=== PATIENT | female | born 1980 | race Caucasian/White ===

== ENCOUNTER 2023-12-14 14:28 | Emergency (ER) | payer OTHER, SELFPAY ==
[2023-12-14 14:46] VITALS: BP 115/70; PULSE 87; RESP 16; TEMP 36.3; O2SAT 100
--- NOTE | 2023-12-14 15:28 | ED.SKABFB ---
HPI - Skin/Abscess/Foreign Bdy General Chief complaint: Skin/Abscess/Foreign Body Stated complaint: Poison Casandra Time Seen by Provider: 12/14/23 15:32 Source: patient Mode of arrival: ambulatory Limitations: no limitations History of Present Illness HPI narrative: 43 y/o female presented for c/o itchy rash to right arm for about 4 days. States she has poison casandra after chopping a tree. States she thinks is spreading to the right back and left foot. Applying Calamine without much improvement. Also takes Zyrtec daily. Denies lip, tongue, or throat swelling, shortness of breath or wheezing. Denies changes to soap, detergent, lotion, or any other exposures. No one else in the house or any contacts with similar symptoms. Related Data Home Medications Medication Instructions Recorded Confirmed Zyrtec-D 12/14/23 cholecalciferol (vitamin D3) 10 12/14/23 mcg (400 unit) capsule (Vitamin D3) levothyroxine 88 mcg tablet mcg 12/14/23 Allergies Allergy/AdvReac Type Severity Reaction Status Date / Time No Known Allergies Allergy Verified 12/14/23 15:11 Review of Systems Review of Systems: CONSTITUTIONAL: Denies body aches, fever, chills, or sweats. EYES: Denies visual changes, redness, or discharge. ENT: Denies rhinorrhea, congestion CARDIOVASCULAR: Denies chest pain, palpitations, or edema. RESPIRATORY: Denies cough or dyspnea. GASTROINTESTINAL: Denies abdominal pain, nausea, vomiting, or diarrhea. SKIN: Reports itchy rash to right arm MUSCULOSKELETAL: Denies back pain, joint pain, or myalgia. NEUROLOGIC: Denies headache, numbness, tingling, or weakness. PMFSH Comments At time of signature, I have reviewed and agree with nursing past medical, surgical, social and family history unless otherwise noted. Please see nursing chart for further information. There is no relevant family history pertinent to the presenting complaint Exam Narrative: GENERAL: Well-appearing EYES: conjunctivae clear, and EOMI. ENT: Mucous membranes moist. Oropharynx without edema, erythema or lesions. NECK: Supple. No lymphadenopathy CHEST: Clear to auscultation. HEART: Regular rate and rhythm. SKIN: Warm, dry. Right elbow with area of vesicles on erythematous base extending from mid bicep to forearm c/w contact dermatitis. No other apparent sites noted. NEURO: Alert and oriented x3. Course Course Emergency Course: Patient is aware of diagnosis, understands and agrees to treatment plan. Anticipatory guidance given. Patient agrees to follow-up as directed and is aware of reasons to seek care at the emergency department. Portions of this record may have been created with voice recognition software Level of Care: Express Care Visit Vital Signs Vital signs: Vital Signs Temperature 97.4 F L 12/14/23 14:46 Pulse Rate 87 12/14/23 14:46 Respiratory Rate 16 12/14/23 14:46 Blood Pressure 115/70 12/14/23 14:46 Pulse Oximetry 100 12/14/23 14:46 Temperature 97.4 F L 12/14/23 14:46 Pulse Rate 87 12/14/23 14:46 Respiratory Rate 16 12/14/23 14:46 Blood Pressure 115/70 12/14/23 14:46 Pulse Oximetry 100 12/14/23 14:46 Reviewed MDM - Skin/Abscess/Foreign Bdy MDM Narrative Medical decision making narrative: Discussed physical exam findings. Advised supportive measures and signs/symptoms to go to the ER. Pt is appropriate for outpt treatment and f/u. Differential Diagnosis Differential diagnosis: Likely abscess of skin or subcutaneous tissue, urticaria, herpes zoster, cellulitis and contact dermatitis Discharge Plan Discharge Clinical Impression: Contact dermatitis Patient Disposition: Home, Self-Care Condition: Stable Instructions: Poison Casandra (ED) Additional Instructions: Take steroids as directed. Benadryl or Zyrtec for itching Cool compresses to the sites of itching, avoid hot water. Avoid scratching to reduce the risk of infection Follow up with your primary care
== END 2023-12-14 15:42 | disposition home or self-care (01) ==
PROVIDERS: Emergency Provider Nurse Practitioner Family
DX: L25.9 Unspecified contact dermatitis, unspecified cause (principal); E03.9 Hypothyroidism, unspecified
CPT/HCPCS: 99213; G0463